=== PATIENT | male | born 1995 | race Caucasian/White ===

== ENCOUNTER 2019-12-18 16:47 | Emergency (ER) | payer SELFPAY ==
[~2019-12-18] VITALS: Ht 172.7 cm; Wt 108.9 kg
[2019-12-18 17:25] VITALS: Ht 172.7 cm; Wt 108.9 kg
[2019-12-18 23:53] VITALS: BP 112/56
== END 2019-12-18 23:53 | disposition other institution (70) ==
LOC: ED 16:47
DX: S00.81XA Abrasion of other part of head, initial encounter (principal); Y04.8XXA Assault by other bodily force, initial encounter; Y93.89 Activity, other specified; Y92.89 Other specified places as the place of occurrence of the external cause; Y99.8 Other external cause status
CPT/HCPCS: Q0092

== ENCOUNTER 2019-12-18 16:47 | Emergency (ER) | payer OTHER | END 2019-12-18 23:53 | disposition other institution (70) | LOC: ED 16:47 | DX: Z02.89 Encounter for other administrative examinations (principal) ==